=== PATIENT | female | born 1980 ===

== ENCOUNTER 2017-05-09 17:16 | Emergency (ER) | payer SELFPAY ==
[2017-05-09 17:55] VITALS: BMI 33.5
[2017-05-09] MEDS ORDERED: Lactated Ringer's 1,000 ML IV SCH (18:00)
[2017-05-09 18:34] LABS: RBC URINE 7 /hpf (0-3); URINE BACTERIA OCC (<OCC); URINE BILIRUBIN NEGATIVE (NEGATIVE); URINE BLOOD NEGATIVE (NEGATIVE); URINE COLOR YELLOW (YELLOW); URINE GLUCOSE (UA) NEG (Normal); URINE KETONE NEGATIVE (NEGATIVE); URINE LEUKOCYTE ESTERASE MOD Leu/uL (Negative); URINE PROTEIN NEGATIVE (NEGATIVE); URINE UROBILINOGEN 0.2-1.0 mg/dL (0.2-1.0); WBC URINE 7 /hpf (0-5)
[2017-05-10 00:08] VITALS: BP 118/69; PULSE 90; RESP 20; TEMP 98.1; O2SAT 98
--- NOTE | 2017-05-10 07:55 | OBHP ---
Datetime: 05/09/2017 19:38 IP Adm Impression: , intrauterine IP Admit Plan: Discharge home Admit Comment, IP Provider: pt seen at 5:45 pm 37 yo F, with IUP at 32.6 w, presented to [facility] with lower abdominal pain that started flores ier today around 9 am. Feels movements. Denies loss of fluid, vaginal bleeding, or contractions. Past OBHx: 2 C-sections in [place], pt states because of macrosomia. No hx GDM. 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 Meds: PNV, ferrous sulfate Allegies: NKDA care: [facility] Next visit: 05/11/17 ROS: denies chest pain, shortness of breath, vomiting, dizziness, headache, burning with urination PE: Gen: AAOx3 CV: S1,S2, RRR Resp: clear to auscultation bilaterally, normal respiratory effort Abd: gravid, +BS Extremities: no edema Speculum exam: cervix closed Assessment: 37yo F, with IUP at 32.6 weeks. Plan: Rule out premature labor. UA, fibronectin. 7:30 pm fibronecrtin negative. UA - moderate leuk esterase Plan: send urine for culture; discharge pt with rx for keflex. encourage to follow up at scheduled appointment at [facility]. -[email or web address] OB Hospitalist note: This pt was seen and examined by me. Agree with above note. MAHNDO Extremities - PN: Normal Abdomen - PN: Normal Back - PN: Normal Breast - PN: Not Done Lungs - PN: Normal Heart - PN: Normal Thyroid - PN: Not Done Neurologic - PN: Normal HEENT - PN: Normal General - PN: Normal FHR - Baseline A Provider: 143 Membranes, Provider: Intact Contraction Comments Provider: none Comments, ACOG Physical Exam: speculum exam: cervix closed. ROS: General: no weakness; no fatigue HEENT: no ; no visual dist CV: no palpitations; no no CP GI: no N/V no diarhea : no F/U/D MS: No joint pain Gestation - Est Wks by US: 32.6 Pool Provider: Negative IP Hx Assessment: The History has been Reviewed and is Current EGA AdmitDate IP: 32.6 Vital Signs Provider: Reviewed; Within Normal Limits IP Chief Complaint: Maternal discomfort NICHD Variability Prov Fetus A: Moderate 6-25bpm NICHD Accel Fetus A IP Provider: 15X15 FHR Category Provider Fetus A: Category I NICHD Decel Fetus A IP Provider: None Dilatation, Provider: 0 Effacement, Provider: 0 Genitourinary Exam: Normal
== END 2017-05-09 19:40 | disposition home or self-care (01) ==
LOC: H.EROB2 17:16 → H.EROB 17:45 → H.EROB2 19:40
DX: O47.03 False labor before 37 completed weeks of gestation, third trimester (principal); Z3A.32 32 weeks gestation of pregnancy; Z87.59 Personal history of other complications of pregnancy, childbirth and the puerperium

== ENCOUNTER 2017-06-14 10:52 | Inpatient (IN) | payer MEDICAID, SELFPAY ==
[2017-06-20 06:59] VITALS: BMI 34.5
[2017-06-20] MEDS ORDERED: ceFAZolin IV 2 gm in Dextrose 2 GM/50 ML BAG IVPB ONE (07:29)
[2017-06-20] MEDS: Lactated Ringer's 1,000 ML IV SCH ×3 (07:30→10:00)
[2017-06-20] MEDS ORDERED: Oxytocin 30 UNITS in Sodium Chloride 0.9% 500 ML IV SCH (07:30)
[2017-06-20 08:19] LABS: BASO % 0.5 % (0.0-2.0); EOS # 0.1 K/uL (0.0-0.7); HEMATOCRIT 40.5 % (34.0-47.0); LYMPH # 2.6 K/uL (1.0-4.3); MEAN CELL VOLUME 85.4 fl (81.0-99.0); MEAN CORPUSCULAR HEMOGLOBIN 28.7 pg (27.0-31.0); MEAN CORPUSCULAR HGB CONC 33.7 g/dL (33.0-37.0); MEAN PLATELET VOLUME 9.9 fl (7.2-11.7); MONO # 0.7 K/uL (0.0-0.8); NEUT # 6.4 K/uL (1.8-7.0); NEUT % 65.5 % (50.0-75.0); NRBC % 0.1 % (0.0-0.0); RED CELL DISTRIBUTION WIDTH 15.3 % (11.5-14.5); WHITE BLOOD COUNT 9.8 K/uL (4.8-10.8)
[2017-06-20] MEDS ORDERED: Morphine 1 mg/ml preservative-free Inj(Duramorph) ONE (09:36)
[2017-06-20] MEDS ORDERED: Esmolol 100 mg/10ml Inj IV ONE (10:04)
[2017-06-20] MEDS ORDERED: Oxycodone/Acetaminophen 5/325 mg Tab PO PRN ×2 (11:33)
--- NOTE | 2017-06-20 12:01 | OBDS ---
DELIVERY PERSONNEL Delivery Doctor: Wilman De La Fuente MD Mechanic Chief: Mary Uribe RN Anesthesiologist: Efraín Shaffer MD Resident: Dr. Floresita JacksonOBR MATERNAL INFORMATION Delivery Anesthesia: Spinal Medications in Delivery: Pitocin 30 mu/500 mL, Pitocin 20 mu/1000 mL Estimated Blood Loss (ml): 800 Placenta Cultured: No Maternal Complications: None LABOR SUMMARY EDC: 06/28/2017 00:00 No. Babies in Womb: 1 Attempted: No Labor Anesthesia: None LABOR INFORMATION Group B Beta Strep: Positive MEMBRANES Membranes Rupture Method: Artificial Rupture of Membranes: 06/20/2017 10:36 Length of Rupture (hrs): 0.02 Amniotic Fluid Color: Clear Amniotic Fluid Amount: Moderate STAGES OF LABOR Stage 3 hrs: 0 Stage 3 min: 1 BABY A INFORMATION Infant Delivery Date/Time: 06/20/2017 10:37 Method of Delivery: Born in Route : No : N/A Forceps: N/A Vacuum Extraction: N/A Shoulder Dystocia : No SHOULDER DYSTOCIA BABY A Infant Delivery Date/Time: 06/20/2017 10:37 PRESENTATION/POSITION BABY A Presentation: Cephalic PLACENTA INFORMATION BABY A Placenta Delivery Time : 06/20/2017 10:38 Placenta Method of Delivery: Expressed Placenta Status: Delivered INFANT INFORMATION BABY A Gestational Age at Delivery: 38.0 Gestational Status: Term Outcome : Liveborn Infant Condition : Stable Sex: Male IDENTIFICATION/MEDS BABY A ID Band Number: [id number] ID Band Location: Left Leg; Left Arm
--- NOTE | 2017-06-20 12:06 | OBADHP ---
Datetime: 06/20/2017 07:28 Admit Comment, IP Provider: CC: scheduled , ctx HPI: 37 YP @ 38.6wks IUP presents to L_D for repeat . Pt was scheduled for 06/21 but she started having ctx and was told to come in today. Endorses good FM, no LOF, no VB and occasional ctx that started yesterdat. She describes them as irregular and low in intensity. Last meal at 7 PM, and last PO intake water at 230AM [email or web address] #[id number] : Dr. Barahona OBHX: x 2, 2009 (macrosomia) and 2013, AMA GyNhx: denies STIs, normal pap and uterine fibroids PMH: denies SurgHx: x 2, lap cholecystectomy SH: , denies smoking, ETOH and illicit drug use FH: FOB congenital heart disease Meds: PNV + Iron Allergies: NKDA PE: Vitals: stable GEN: NAD Cardio: S1S2 no M/G/R Resp: vesicular breathing b/l Abdomen: gravid, NT, BS+ Neuro: AAO x 3 Ext: no edema, NT FM: 130, moderate variability-catagory I Assessment/Plan: 37 YO @ 38.6wks IUP is admitted for repeat with BTL. HIV neg, RPR neg, Hep B neg, GBS pos in urine. -admit to unit -blood work -fluids -consult anesthesiology -NPO -continue monitor -vitals -Scds -abx Shanell Staley, PGY I Agree with above note by Rebeka PGY1. Patient for repeat cs with BTL. Due to previous csection. Neil walsh with complaints of feeling contractions and pressure. Good movement present. Pelvic Type - PN: Adequate Extremities - PN: Normal Abdomen - PN: Normal Back - PN: Not Done Breast - PN: Not Done Lungs - PN: Normal Heart - PN: Normal Thyroid - PN: Not Done Neurologic - PN: Normal HEENT - PN: Normal General - PN: Normal FHR - Baseline A Provider: 130 Vital Signs Provider: Reviewed; Within Normal Limits IP Chief Complaint: Uterine contractions; Scheduled Section NICHD Variability Prov Fetus A: Moderate 6-25bpm NICHD Accel Fetus A IP Provider: 15X15 FHR Category Provider Fetus A: Category I Genitourinary Exam: Normal DTRs - PN: Not Done EGA AdmitDate IP: 38.6 IP Adm Impression: Term, intrauterine IP Admit Plan: Admit to unit; Initiate Section protocol; Observation/Evaluation Datetime: 05/09/2017 19:38 Membranes, Provider: Intact Contraction Comments Provider: none Comments, ACOG Physical Exam: speculum exam: cervix closed. ROS: General: no weakness; no fatigue HEENT: no ; no visual dist CV: no palpitations; no no CP GI: no N/V no diarhea : no F/U/D MS: No joint pain Gestation - Est Wks by US: 32.6 Pool Provider: Negative IP Hx Assessment: The History has been Reviewed and is Current NICHD Decel Fetus A IP Provider: None Dilatation, Provider: 0 Effacement, Provider: 0
[2017-06-20] MEDS ORDERED: Naloxone 0.4 mg/ml Inj (Adult) IVP PRN (12:42)
[2017-06-20] MEDS ORDERED: DiphenhydrAMINE 50 mg/ml Inj IVP PRN (12:42)
--- NOTE | 2017-06-20 13:21 | OP ---
PROCEDURE DATE: 06/20/2017 PREOPERATIVE DIAGNOSES: Term with previous section, unable to labor, desires permanent sterilization. POSTOPERATIVE DIAGNOSES: Term with previous section, unable to labor, desires permanent sterilization, delivered. PROCEDURE: Repeat low transverse section, bilateral tubal ligation. SURGEON: Ernesto Freire MD. MANAGER TALENT MANAGEMENT: Steven Gonzales MD. FINDINGS: A live male with Apgars of 9 and 9. Weight 8 pounds, 3 ounces. 3730 grams. Delivered in vertex presentation. Nuchal cord x1, easily reduced. Clear fluid. A 3-cm fundal fibroid seen. This was adherent to the omentum and was taken down using free ties and the Bovie. IV FLUID INTAKE: 1100 mL lactated Ringer's. ESTIMATED BLOOD LOSS: 800 mL. URINE OUTPUT: 150 mL clear at the end of procedure. COMPLICATIONS: None. PATHOLOGY: Segment of right and left fallopian tube, closure patel. DESCRIPTION OF PROCEDURE: The patient was taken to the operating room and given spinal anesthesia without difficulty. She was prepped and draped in normal sterile fashion in the dorsal supine position with a leftward tilt. A Pfannenstiel skin incision was then made with a scalpel and carried through to the underlying fascia with the Bovie. The fascia was incised in the midline. This incision was extended laterally using the Bovie. The inferior aspect of the fascial incision was grasped with Tanja clamps, elevated and dissected off using the Bovie, then bluntly. Attention was then turned to the superior aspect of the fascial incision which in a similar fashion was dissected off with the Bovie, then bluntly. The rectus muscles were meticulously in the midline using the scalpel and the peritoneum was then entered. This incision was extended laterally, superiorly, inferiorly paying close attention to the bladder. The bladder blade was inserted. The vesicouterine peritoneum was identified, tented up, entered with Metzenbaum scissors. This incision was extended laterally. A bladder flap was created gently. The bladder blade was reinserted. The lower uterine segment was identified and entered in a transverse fashion with the scalpel. This incision was then extended cephalocaudally bluntly. The membranes were ruptured, noted to be clear and the infant was then delivered in vertex presentation after reduction of a nuchal cord atraumatically. The cord was doubly clamped and cut and the infant was handed off to the awaiting airline attendant. Cord blood was then taken. The uterus was exteriorized and cleared off all clots and debris. At this time, a fundal fibroid was noted and was found to be adherent to the omentum. This was taken down using free ties and the Bovie and good hemostasis was noted. The uterus was then closed with 1 Vicryl in a running locked fashion and good hemostasis was noted. Attention was then turned to the tubes and a 2-0 chromic suture was then used to perform a tubal ligation using a modified [place]ia procedure. A segment of the right and the left fallopian were then handed off of the field for pathology and the Bovie was used to obtain good hemostasis of the cut portion of the tube. Copious irrigation was performed. The uterus was returned to the abdomen. Inspection of the uterine incision and site of the tubal ligation revealed good hemostasis. The peritoneum and muscle were then closed with 2-0 Vicryl in a running fashion. The fascia was then reapproximated using 0 Vicryl in a running fashion bilaterally to the midline. The Bovie was used to obtain good hemostasis on the subcutaneous fat and this layer was then closed with 3-0 plain suture with 4 interrupted stitches. The incision was covered with patel and a sterile dressing. The patient tolerated the procedure well. Sponge, lap and needle counts were correct x4. Ancef 2 g were given preoperatively. The patient was taken to the recovery room in stable condition. There was no injury to the bladder, bowel, ureter or baby. Due to the nature of this case, an actuarial assistant was requested. My actuarial assistant remained for the entire procedure from the initial incision to the patient's transfer to the recovery room. He assisted with entry into the abdominal cavity, delivery of the baby, lysing adhesions of the omentum to the fundal fibroid and closure of the uterus and abdominal cavity. He also provided good exposure to decrease blood loss and ensured good hemostasis. This procedure could not have been performed without his assistance. Ernesto Freire MD [facility] # [id number]
[2017-06-21] MEDS: Lactated Ringer's 1,000 ML IV SCH (03:20)
[2017-06-21 06:48] LABS: BASO % 0.2 % (0.0-2.0); EOS # 0.1 K/uL (0.0-0.7); EOS % 0.5 % (0.0-4.0); HEMATOCRIT 36.9 % (34.0-47.0); LYMPH # 1.4 K/uL (1.0-4.3); LYMPH % 9.8 % (20.0-40.0); MEAN CELL VOLUME 86.3 fl (81.0-99.0); MEAN CORPUSCULAR HEMOGLOBIN 28.5 pg (27.0-31.0); MEAN PLATELET VOLUME 8.9 fl (7.2-11.7); MONO % 6.6 % (0.0-10.0); NEUT # 11.9 K/uL (1.8-7.0); NEUT % 82.9 % (50.0-75.0); PLATELET COUNT 163 K/uL (130-400); RED CELL DISTRIBUTION WIDTH 14.8 % (11.5-14.5); WHITE BLOOD COUNT 14.4 K/uL (4.8-10.8)
[2017-06-21 12:20] LABS: NEUTROPHIL 87 % (42-75); TOTAL CELLS COUNTED 100
--- NOTE | 2017-06-21 16:02 | OBPPN ---
Datetime: 06/21/2017 06:40 PP Pain Prov: Within normal limits PP Nausea Prov: Denies PP Flatus Prov: No PP BM Prov: No PP Breasts Prov: Not Done PP Heart Prov: Normal PP Lungs Prov: Normal PP Abdomen/Uterus Prov: Normal PP Lochia Prov: Normal PP Vulva/Perineum Prov: Normal PP CVA Tenderness Prov: Not Done PP Extremities Prov: Normal PP C/S Incision Prov: Normal PP Progress Prov: Normal PP Comments Phys Exam Prov: Dressing is dry and clean PP Impression Prov: Normal progression PP Plan Prov: Continue present management PP Progress Note Prov: [facility]# [id number] POD#1 S: pt seen and examined bedside this AM, comfortable in bed. s/p repeat . No complains or acute event overnight. Pt admits pain and asking for pain meds. Pt is not yet ambulating. Will try l iquid diet this morning, will advance to regular diet if tolerated. Lochia wnl, like menses. No BM or passing gas. Patient is infant. Will remove Klein this morning. Denies fever, chills, headache, chest pain, dyspnea, palpitations, n/v/d/c and remains afebrile. O: VS stable GEN: AA, NAD Cardio: S1S2 no M/G/R Resp: vesicular breathing b/l Abdomen: Dressing looks clean and dry Fundus @ the umbilicus and firm. BS- Neuro: AAO x 3 Ext: no edema noted, no calf tenderness Assessment/Plan: 37 y/o Femal, , delivered at 38.6 wks, male infant via repeat on 06/20/17. Doing wel l POD1. OOB with caution Encouraged ambulation and SCD's for DVT prophylaxis Percocet 5/325mg 1-2 tablets po q6 for mod/sev pain Ibuprofen for mild-mod pain Senakot 17.2mg PO qHS Regular diet this morning, eat as tolerated Will remove dressing this afternoon, d/c klein Will follow up post op CBC today --- Cesar Cohen, PGY-1 The patient was seen with the resident I agree with the note IP PP Procedures: None Vital Signs Provider PP: Reviewed; Within Normal Limits
[2017-06-22] MEDS: Simethicone 80 mg Chewtab PO SCH ×2 (15:37→22:15)
--- NOTE | 2017-06-23 07:35 | OBPPN ---
Datetime: 06/23/2017 06:39 PP Pain Prov: Within normal limits PP Nausea Prov: Denies PP Flatus Prov: Yes PP BM Prov: No PP Heart Prov: Normal PP Lungs Prov: Normal PP Abdomen/Uterus Prov: Normal PP Lochia Prov: Normal PP Vulva/Perineum Prov: Normal PP Extremities Prov: Normal PP C/S Incision Prov: Normal PP Progress Prov: Normal PP Impression Prov: Normal progression PP Plan Prov: Continue present management PP Progress Note Prov: [employer]# [id number] POD#3 S: pt seen and examined bedside this AM, comfortable in bed. s/p repeat . No complains or acute event overnight. Pt admits pain, controlled with meds. Pt is ambulating, voiding and tolaretin g PO regular diet. Lochia wnl, like menses. No BM but passing gas. Patient is . Denies fever, chills, headache, chest pain, dyspnea, palpitations, n/v/d/c and remains afebrile. O: VS stable GEN: AA, NAD Cardio: S1S2 no M/G/R Resp: vesicular breathing b/l Abdomen: Incision looks clean and dry/ [place] Fundus @ the umbilicus and firm. BS+ Neuro: AAO x 3 Ext: no edema noted, no calf tenderness Assessment/Plan: 37 y/o Femal, , delivered at 38.6 wks, male via repeat on 06/20/17. Doing wel l POD3. OOB with caution Encouraged ambulation and SCD's for DVT prophylaxis Percocet 5/325mg 1-2 tablets po q6 for mod/sev pain Ibuprofen for mild-mod pain Senakot 17.2mg PO qHS post op CBC 12.2/39.6 Patient is stable for d/c home --- Cesar Cohen, PGY-1 OB Hospitalist Addendum: Pt seen and examined by me. Agree w/ above. POD 3 s/p c/s, doing well, breast and bottle feeding. Incision w/ patel in place. Discharge home today. (ES) IP PP Procedures: None Vital Signs Provider PP: Reviewed; Within Normal Limits Datetime: 06/22/2017 06:29 PP Breasts Prov: Not Done PP CVA Tenderness Prov: Normal
--- NOTE | 2017-06-23 07:38 | OBDCSUM ---
Datetime: 06/23/2017 06:56 Discharged to, Provider: Home Follow up at, Provider: [facility] clinic Disch Instr Activity: Normal activity Disch Instr Diet: Regular Discharge Instructions, Provider: Routine instructions given Discharge Diagnosis, Provider: Term Delivered Discharge Time: 06/23/2017 10:00 Follow up in weeks, Provider: WC: 06/29/17 at 3:15pm, PP: 08/03/17 at 9am Disch Referrals: None Contraception discussed, Prov: Yes Discharge Comment, Provider: 37 y/o Femal, , delivered at 38.6 wks, male infant via repeat c-sec tion on 06/20/17. Uncomplicated course. Mother is doing well, Lochia is minimal, pt is amb ulating, voiding, tolerating PO regular diet, +/- flatus/BM and remains afebrile. Baby is doing well. 1. Encourage 2. Continue PNV 1 tab/day 3. Ibuprofen/Percocet for pain and Senokot for constipation. 4. Ambulatory with caution, nothing per vagina, no heavy lifting, avoid stairs, if excessive bleed ing or fever without relief from Tylenol go to ED 5. F/U at [facility] for WC visit 06/29/17 at 3:00pm and PP visit 08/03/17 at 9am Follow up operations research manager for Baby in 3-4 days Patient is stable for d/c home Contraception after Delivery: Undecided
[2017-06-23] MEDS: Simethicone 80 mg Chewtab PO SCH (09:02)
--- NOTE | 2017-06-23 09:04 | OBPPN ---
Datetime: 06/23/2017 06:39 PP Progress Note Prov: [facility]# [id number] POD#3 S: pt seen and examined bedside this AM, comfortable in bed. s/p repeat . No complains or acute event overnight. Pt admits pain, controlled with meds. Pt is ambulating, voiding and tolaretin g PO regular diet. Lochia wnl, like menses. No BM but passing gas. Patient is infant. Denies fever, chills, headache, chest pain, dyspnea, palpitations, n/v/d/c and remains afebrile. O: VS stable GEN: AA, NAD Cardio: S1S2 no M/G/R Resp: vesicular breathing b/l Abdomen: Incision looks clean and dry/ [place] Fundus @ the umbilicus and firm. BS+ Neuro: AAO x 3 Ext: no edema noted, no calf tenderness Assessment/Plan: 37 y/o Femal, , delivered at 38.6 wks, male via repeat on 06/20/17. Doing wel l POD3. OOB with caution Encouraged ambulation and SCD's for DVT prophylaxis Percocet 5/325mg 1-2 tablets po q6 for mod/sev pain Ibuprofen for mild-mod pain Senakot 17.2mg PO qHS post op CBC 12.2/39.6 Patient is stable for d/c home --- Cesar Cohen, PGY-1 OB Hospitalist Addendum: Pt seen and examined by me. Agree w/ above. POD 3 s/p c/s, doing well, breast and bottle feeding. Incision w/ steri strips in place. Discharge home today. (ES)
[2017-06-23 20:34] VITALS: BP 116/69; PULSE 88; RESP 19; TEMP 97.8; O2SAT 99
== END 2017-06-23 14:42 | disposition home or self-care (01) | DRG 766 ==
LOC: H.L&D 06-20 07:30 → H.OB/GYN 06-20 16:24
PROVIDERS: ADMIT Obstetrics & Gynecology; ATTEND Obstetrics & Gynecology
PROC: 10D00Z1 Extraction of Products of Conception, Low, Open Approach (ICD-10-PCS; principal; 2017-06-20)
PROC: 0UB70ZZ Excision of Bilateral Fallopian Tubes, Open Approach (ICD-10-PCS; 2017-06-20)
PROC: 4A1HXCZ Monitoring of Products of Conception, Cardiac Rate, External Approach (ICD-10-PCS; 2017-06-20)
DX: O34.211 Maternal care for low transverse scar from previous cesarean delivery (principal); N85.8 Other specified noninflammatory disorders of uterus; Z37.0 Single live birth; O69.81X0 Labor and delivery complicated by cord around neck, without compression, not applicable or unspecified; Z3A.38 38 weeks gestation of pregnancy; O99.824 Streptococcus B carrier state complicating childbirth